=== PATIENT | male | born 1985 | race Caucasian/White ===

== ENCOUNTER 2025-07-14 04:58 | Emergency (ER) | payer OTHER, SELFPAY ==
[2025-07-14 05:00] VITALS: BP 120/89; PULSE 91; RESP 16; TEMP 36.2; O2SAT 98; BMI 25.4
[2025-07-14 05:21] LABS: MANUAL DIFF FLAG NO
[2025-07-14 05:22] LABS: Hematocrit 40.1 % (42.0-52.0); Hemoglobin 14.0 g/dl (14.0-18.0); Imm Gran Abs Auto 0.02 X10*3/uL (0.00-0.03); Imm Gran Pct Auto 0.2 % (0.0-0.4); Lymphocytes Absolute Auto 2.3 X10*3/uL (1.2-4.9); Mean Corpuscular HGB Conc 34.9 g/dl (31.0-36.0); Mean Corpuscular Hemoglobin 30.8 pg (27.0-33.0); Mean Corpuscular Volume 88.1 fL (80.0-98.0); NRBC Abs Auto 0.000 X10*3/uL (0.0-0.012); NRBC Pct Auto 0.0 /100WBC (0.0-0.2); Platelet Count 370 X10*3/uL (160-400); Red Blood Count 4.55 X10*6/uL (4.60-5.80); White Blood Count 9.0 X10*3/uL (4.8-10.8)
[2025-07-14 05:42] LABS: Acetaminophen LAB < 3 mcg/mL (<30); Alanine Aminotransferase 53 U/L (0-40); Albumin Level 4.8 g/dL (3.5-5.0); Alkaline Phosphatase 82 U/L (39-117); Anion Gap 13 (12-20); Aspartate Amino Transferase 28 U/L (5-37); Blood Urea Nitrogen 10 mg/dL (9-16); Calcium 9.5 mg/dL (8.4-10.2); Carbon Dioxide 26 mmol/L (22-29); Chloride 108 mmol/L (96-108); Creatinine Clr Calc Pharmacy 125.7; Estimated Glomerular Filt Rate > 60; Potassium 3.9 mmol/L (3.3-5.1); Salicylate < 5.0 mg/dL (15-30); Sodium 143 mmol/L (135-145); Total Protein 7.5 g/dL (6.5-8.0)
[2025-07-14 05:56] LABS: Appearance Urine Clear; Glucose Urine UA Negative (Negative); PH 5.5 (5.0-9.0); Specific Gravity - Urine 1.025 (1.005-1.025)
[2025-07-14 06:08] LABS: Cannabinoid Screen Urine Not Detected (Not Detect)
[2025-07-14 06:15] VITALS: BP 120/89; PULSE 91; RESP 16; TEMP 36.2; O2SAT 98
--- NOTE | 2025-07-14 06:15 | PC.NURSE ---
Assumed care of pt, presents with Suicidal ideation and depression, per pt he is very co-dependent on his and she wants a divorce and caused pt to state that if she leaves me I don't want to wake up Pt stated that he sometimes he take too much or too little of his ADHD medication. [id number], pending provider
--- NOTE | 2025-07-14 06:41 | ED_ITS ---
HPI - Psych General Chief Complaint: Psychiatric Symptoms Stated Complaint: Mental Health Crisis Time Seen by Provider: 07/14/25 06:11 Source: patient Mode of arrival: ambulatory Limitations: no limitations History of Present Illness ED Provider: HPI Narrative: 3-year-old male with a history of anxiety, depression, ADHD, he has some marital issues, reports usually he is able to manage his wounds bed he had a big for areas and felt like he needed more help no active SI or HI when he gets angry he makes statements that he regrets. Insomnia is part of an issue and he tends to overuse his ADHD meds. Related Data Home Medications ?Medication ?Instructions ?Recorded ?Confirmed dextroamphetamine-amphetamine 20 1 tab PO BID 07/14/25 07/14/25 mg tablet escitalopram oxalate 10 mg tablet 10 mg PO DAILY 07/1407/14/25 Allergies Allergy/AdvReac Type Severity Reaction Status Date / Time soy Allergy Itching Verified 07/14/25 05:06 Review of Systems 2 Constitutional: Constitutional: Reports as per [facility] Social History Social History Smoked in Last 30 Days: No Advance Directives: No Advance Directives Information Provided: Yes Do you have a plan to hurt others: No Plan Physical Exam 2 Vital Signs: Vital Signs: Last Vital Signs Temp 97.1 F 07/14/25 06:15 Pulse 91 07/14/25 06:15 Resp 16 07/14/25 06:15 BP 120/89 07/14/25 06:15 Pulse Ox 98 07/14/25 06:15 O2 Del Method Room Air 07/14/25 06:15 BMI result Body Mass Index 25.4 Const: Other: * Gen: ?Overall well-appearing patient * Resp: ?No wheezing rales rhonchi no stridor moving air well * MSK: FROM, strength 5/5 all extremities * Skin: Warm, dry, intact, * Neuro: ?Alert and oriented x3, moving upper and lower extremities symmetrically, no obvious facial asymmetry noted, cranial nerves 2-12 intact * Psych: No active SI or HI, nonpressured speech, Medical Decision Making Medical Decision Making [facility] Narrative: 6:46 AM 07/14/2025 (Dr. Demetri Damon): We will refer patient for psychiatric evaluation, no active SI or HI, he does have ADHD, depression anxiety, is going through some marital issues at home, does not seem that drugs or alcohol are big part of his presentation, she has been fairly functional, helps with the kids and continues to hold a job though he states he is not consistent with it. Consult Healthcare Provider Management of the patient was discussed with: Behavioral Health Provider Lab Data MDM Lab Attestation statement: I reviewed the patient's lab results. 07/14/25 05:16 07/14/25 05:16 Labs: Lab Results 07/14/25 07/14/25 Range/Units 05:16 05:45 WBC 9.0 (4.8-10.8) X10*3/uL RBC 4.55 L (4.60-5.80) X10*6/uL Hgb 14.0 (14.0-18.0) g/dl Hct 40.1 L (42.0-52.0) % MCV 88.1 (80.0-98.0) fL MCH 30.8 (27.0-33.0) pg MCHC 34.9 (31.0-36.0) g/dl RDW 12.8 (11.0-16.0) % Plt Count 370 (160-400) X10*3/uL MPV 9.9 (9.4-12.4) fL Immature Gran % (Auto) 0.2 (0.0-0.4) % Neut % (Auto) 61.7 (45-73) % Lymph % (Auto) 25.0 (20-40) % Desha % (Auto) 6.6 (2-11) % Eos % (Auto) 5.6 H (0-4) % Baso % (Auto) 0.9 (0-2) % Lymph # (Auto) 2.3 (1.2-4.9) X10*3/uL Desha # (Auto) 0.6 (0.1-1.2) X10*3/uL Eos # (Auto) 0.5 H (0.0-0.4) X10*3/uL Baso # (Auto) 0.1 (0.0-0.2) X10*3/uL Abs Immat Gran (auto) 0.02 (0.00-0.03) X10*3/uL Absolute Neuts (auto) 5.6 (2.0-8.3) x10*3/uL Absolute Nucleated RBC 0.000 (0.0-0.012) X10*3/uL Nucleated RBC % (auto) 0.0 (0.0-0.2) /100WBC Sodium 143 (135-145) mmol/L Potassium 3.9 (3.3-5.1) mmol/L Chloride 108 (96-108) mmol/L Carbon Dioxide 26 (22-29) mmol/L Anion Gap 13 (12-20) BUN 10 (9-16) mg/dL Creatinine 0.73 (0.5-1.4) mg/dL Estim Creat Clear Calc 125.7 Estimated GFR > 60 Random Glucose 98 (60-115) mg/dL Calcium 9.5 (8.4-10.2) mg/dL Total Bilirubin 0.6 (0.0-1.0) mg/dL AST 28 (5-37) U/L ALT 53 H (0-40) U/L Alkaline Phosphatase 82 (39-117) U/L Total Protein 7.5 (6.5-8.0) g/dL Albumin 4.8 (3.5-5.0) g/dL Urine Color Yellow Urine Appearance Clear Urine pH 5.5 (5.0-9.0) Ur Specific [place] 1.025 (1.005-1.025) Urine Protein Negative (Neg-Trace) mg/dL Urine Glucose (UA) Negative (Negative) mg/dL Urine Ketones Negative (Negative) mg/dL Urine Blood Negative (Negative) Urine Nitrite Negative (Negative) Ur Leukocyte Esterase Negative (Negative) Urine RBC 0-2 (0-2) /HPF Urine WBC 0-5 (0-5) /HPF Ur Squamous Epith Cells 0-2 (0-2) /HPF Urine Bacteria None Seen (None Seen) Hyaline Casts 3-5 (0-2) /LPF Salicylates < 5.0 L (15-30) mg/dL Urine Opiates Screen Not Detected (Not Detect) Ur Buprenorphine Scrn Not Detected (Not Detect) ng/mL Ur Oxycodone Screen Not Detected (Not Detect) ng/mL Urine Methadone Screen Not Detected (Not Detect) ng/mL Urine Fentanyl Screen Not Detected (Not Detect) Acetaminophen < 3 (<30) mcg/mL Ur Barbiturates Screen Not Detected (Not Detect) Ur Phencyclidine Scrn Not Detected (Not Detect) Ur Amphetamines Screen POSITIVE H (Not Detect) U Benzodiazepines Scrn Not Detected (Not Detect) Urine Cocaine Screen Not Detected (Not Detect) U Marijuana (THC) Screen Not Detected (Not Detect) Ethyl Alcohol < 10 mg/dL Discharge Plan Discharge Clinical Impression: Acute anxiety Patient Disposition: Home, Self-Care Additional Instructions: You were seen in our Emergency Department today for treatment of a behavioral health issue. It is important after your visit that you follow up with either your behavioral health provider or a primary care doctor within 7 days.? If you have trouble finding a therapist you can reach out to [address] [phone] The National Suicide and Crisis Lifeline can be reached 7 days a week 24 hours a day.? Call 988 to speak with someone.? Return for any worsening symptoms or concerns such as thoughts of self harm or harm to others. Please call 911 if you feel your mental health is worsening.? Prescriptions: No Action dextroamphetamine-amphetamine 20 mg tablet 1 tab PO BID escitalopram oxalate 10 mg tablet 10 mg PO DAILY Interventions: [place]-Suicide Risk Severity Scale Last Done: 07/14/25 06:15 Print Language: [place]
--- NOTE | 2025-07-14 08:37 | PC.NURSE ---
Assumed care, report received. Pt is awake, quiet and calm, he is eating breakfast.
--- NOTE | 2025-07-14 09:32 | MHC.CARE ---
Pt does not meet the criteria for a higher level of care and will D/C to follow up with current providers. ED provider in agreement.
[2025-07-14 09:46] VITALS: BP 120/89; PULSE 91; RESP 16; TEMP 36.1
== END 2025-07-14 10:01 | disposition home or self-care (01) ==
PROVIDERS: Emergency Provider Emergency Medicine
DX: F41.9 Anxiety disorder, unspecified (principal); G47.00 Insomnia, unspecified; F90.9 Attention-deficit hyperactivity disorder, unspecified type; Z79.899 Other long term (current) drug therapy
CPT/HCPCS: 36415; 80053; 80143; 80179; 80307; 81001; 85025; 99285; S9485